=== PATIENT | male | born 1995 | race Caucasian/White ===

== ENCOUNTER 2018-10-19 23:46 | Emergency (ER) | payer OTHER ==
[2018-10-19 23:51] VITALS: BP 146/86
--- NOTE | 2018-10-19 23:52 | EDPHY ---
H & P Time Seen by Provider: 10/19/18 23:52 HPI/ROS: CHIEF COMPLAINT: Right foot injury HISTORY OF PRESENT ILLNESS: [ ] [PRIMARY CARE PROVIDER:][ ] REVIEW OF SYSTEMS: [A ten point review of systems was performed and is negative with the exception of the items mentioned in the HPI] PHYSICAL EXAM (Prior to examination, patient consented to physical exam, hands were washed and my usual and customary physical exam procedures followed) 1) GENERAL: [Well-developed, well-nourished, alert and oriented. Appears to be in no acute distress.] 2) HEAD: [Normocephalic] 3) HEENT: [Pupils equal, round, reactive to light bilaterally. ] 4) LUNGS: [Breathing comfortably.] 5) MUSCULOSKELETAL: [proximal tibia and fibula nontender ] .[5th MT nontender] [ negative Dial test], [compartments soft] 6) SKIN: [ ] 7) VASCULAR: DP,PT pulses and cap refill present and brisk DIFFERENTIAL DIAGNOSIS: [ in no particular order including but not limited to fracture, sprain, compartment syndrome] Xray of the [ ] interpreted by myself: [no definitive acute osseous abnormality ] [Procedure: Crutches indications for crutch use discussed with patient. Patient fitted for crutches by ER staff. Observed ambulating with crutches. I think the patient has the capacity to safely use crutches. Usual and customary crutch walking precautions provided] Procedure: Splint A [ letha boot] splint was applied by ER copier technician. After application of the splint I returned and re-examined the patient. The splint was adequately immobilizing the joint and distal to the splint the patient's circulation and sensation were intact. Patient shows no signs of compartment syndrome. Was given orthopedic precautions. Smoking Status: Never smoked Constitutional: Initial Vital Signs Temperature (C) 37 C 10/19/18 23:50 Heart Rate 107 H 10/19/18 23:50 Respiratory Rate 17 10/19/18 23:50 Blood Pressure 146/86 H 10/19/18 23:50 O2 Sat (%) 95 10/19/18 23:50 O2 Delivery Mode Room Air Allergies/Adverse Reactions: No Known Allergies Allergy (Unverified 10/19/18 23:50) Home Medications: Medication Instructions Recorded NK [No Known Home Meds] 10/19/18 MDM/Departure - Depart Referrals: NONE *PRIMARY CARE P,. [Primary Care Provider] - As per Instructions
--- NOTE | 2018-10-20 01:07 | EDPHY ---
H & P Stated Complaint: R foot inj, fall going up stairs, partially able to bear weight Time Seen by Provider: 10/19/18 23:52 HPI/ROS: Chief Complaint: Foot injury HPI: 22-year-old male injured his foot while walking up some stairs this afternoon. He was walking and tripped, striking the dorsum of his foot on a concrete step. He has been able to weight bear but has been having increasing pain. No prior injuries. No numbness or weakness. Denies other injuries. ROS: 10 systems were reviewed and were negative except those elements noted in the HPI. PMH: Denies Social History: No smoking, no alcohol, no recreational drug use Family History: non-contributory Physical Exam: Gen: Awake, Alert, No Distress Ext: Patient has tenderness on the dorsum of his right foot in the midfoot. With moderate swelling. No erythema, no ankle tenderness, sensations intact distally. Capillary refills less than 3 sec. Skin: no rash Neuro: CN II-XII intact, Sensation grossly intact, Strength 5/5 in bilateral upper and lower extremities - Personal History Current Tetanus Diphtheria and Acellular Pertussis (TDAP): Yes - Medical/Surgical History Hx Asthma: No Hx Chronic Respiratory Disease: No Hx Diabetes: No Hx Cardiac Disease: No Hx Renal Disease: No Hx Cirrhosis: No Hx Alcoholism: No Hx HIV/AIDS: No Hx Splenectomy or Spleen Trauma: No Other PMH: Denies - Social History Smoking Status: Never smoked Constitutional: Initial Vital Signs Temperature (C) 37 C 10/19/18 23:50 Heart Rate 107 H 10/19/18 23:50 Respiratory Rate 17 10/19/18 23:50 Blood Pressure 146/86 H 10/19/18 23:50 O2 Sat (%) 95 10/19/18 23:50 O2 Delivery Mode Room Air Allergies/Adverse Reactions: No Known Allergies Allergy (Unverified 10/19/18 23:50) Home Medications: Medication Instructions Recorded NK [No Known Home Meds] 10/19/18 Medical Decision Making - Diagnostics Imaging Results: No acute fracture per my interpretation. Imaging: I viewed and interpreted images myself ED Course/Re-evaluation: 22-year-old male with foot contusion. No obvious fracture on x-ray. Will placement orthopedic shoe. He already has crutches. Will discharge with follow -up with Orthopedics, a dull pain control, return for any concerns. Departure - Departure Disposition: Home, Routine, Self-Care Clinical Impression: Foot contusion Condition: Good Instructions: Foot Contusion (ED), Post Surgical Shoe (ED), Crutch Instructions (ED) Additional Instructions: Take ibuprofen, 600 mg every 8 hr. You may alternate with acetaminophen, 1000 mg every 8 hr. Follow up with orthopedist in 3-4 days if symptoms are not improving. Referrals: Ana Mcdowell MD [Medical Doctor] - As per Instructions
== END 2018-10-20 01:17 | disposition home or self-care (01) ==
DX: S90.31XA Contusion of right foot, initial encounter (principal); W22.8XXA Striking against or struck by other objects, initial encounter; Y93.01 Activity, walking, marching and hiking
CPT/HCPCS: L4386